=== PATIENT | female | born 1950 | race Hispanic/Latino ===

== ENCOUNTER 2025-06-16 08:55 | Outpatient (CLI) | payer MEDICARE, OTHER, SELFPAY | END 2025-06-16 08:56 | disposition home or self-care (01) | LOC: BICRAD 08:55 | PROVIDERS: ATTEND Family Medicine | DX: S89.92XA Unspecified injury of left lower leg, initial encounter (principal); S99.911A Unspecified injury of right ankle, initial encounter ==

== ENCOUNTER 2025-06-30 13:17 | Outpatient (CLI) | payer MEDICARE ==
[2025-06-30 13:48] LABS: Estimated GFR - POC 68.0
== END 2025-06-30 13:18 | disposition home or self-care (01) ==
LOC: CT 13:17
PROVIDERS: ATTEND Family Medicine
DX: R55 Syncope and collapse (principal); Z82.49 Family history of ischemic heart disease and other diseases of the circulatory system
CPT/HCPCS: 36415; 70496; 82565